=== PATIENT | female | born 1975 | race Caucasian/White ===

== ENCOUNTER 2018-12-31 07:09 | Emergency (ER) | payer BC ==
[~2018-12-31] VITALS: Ht 167.6 cm; Wt 172.4 kg
[~2018-12-31 07:09] MED LIST: COLACE100 MG PO; HYDROCODONE-APA1 TA1 PO; LEVAQUIN 500 M500 M2 PO; OMEPRAZOLE 20 M20 M1 PO; ZOFRAN ODT4 MG DISSOLVE
[2018-12-31 07:47] LABS: URINE BILIRUBIN NEGATIVE (Negative); URINE BLOOD TRACE (Negative); URINE CLARITY CLEAR; URINE COLOR YELLOW; URINE GLUCOSE-RANDOM NEGATIVE (Negative); URINE KETONES NEGATIVE (Negative); URINE LEUKOCYTES-REFLEX NEGATIVE (Negative); URINE NITRITE-REFLEX NEGATIVE (Negative); URINE PROTEIN TRACE (Negative); URINE SPECIFIC GRAVITY >= 1.030 (1.005-1.030); URINE UROBILINOGEN 0.2 E.U./dl (0.2-1.0)
[2018-12-31 07:49] LABS: ABSOLUTE EOSINOPHILS 0.1 thou/uL (0.0-0.7); ABSOLUTE LYMPHOCYTES 1.8 thou/uL (0.8-5.3); ABSOLUTE MONOCYTES 0.4 thou/uL (0.0-1.2); ABSOLUTE NEUTROPHILS 7.3 thou/uL (1.6-8.1); BASOPHILS 0.4 %; HEMATOCRIT 42.6 % (37.0-47.0); HEMOGLOBIN 14.4 gm/dL (12.0-15.0); LYMPHOCYTES 18.8 %; MCH 30.2 pg (26.0-34.0); MCHC 33.8 g/dL (28.0-37.0); MCV 89.2 fL (80.0-100.0); MONOCYTES 3.8 %; MPV 7.8 fl. (7.2-11.1); NUCLEATED RBCS 0 /100WBC; PLATELET COUNT* 315 thou/uL (150-400); RBC 4.78 mil/uL (4.20-5.00); RDW-CV 13.2 % (10.5-14.5); WBC 9.7 thou/uL (4.0-11.0)
[2018-12-31 08:06] LABS: ALBUMIN 3.9 g/dL (3.4-5.0); CALCIUM 9.2 mg/dL (8.5-10.1); CREATININE 0.8 mg/dL (0.6-1.3); TOTAL BILIRUBIN 0.4 mg/dL (<0.1-1.0)
[2018-12-31] MEDS ORDERED: NORCO 5-325 TA1 EACH PO (10:04)
[2018-12-31] MEDS ORDERED: ZOFRAN ODT4 MG PO (10:04)
[2018-12-31 10:23] VITALS: BP 136/66
== END 2018-12-31 10:24 | disposition home or self-care (01) ==
LOC: M.ERS 07:09
PROVIDERS: Personal Emergency Response Attendant
DX: K43.9 Ventral hernia without obstruction or gangrene (principal); Z87.891 Personal history of nicotine dependence; Z88.6 Allergy status to analgesic agent